=== PATIENT | male | born 1990 | race African-American/Black ===

== ENCOUNTER 2019-04-09 18:32 | Emergency (ER) | payer OTHER, SELFPAY ==
--- NOTE | 2019-04-09 18:44 | ED.URI ---
HPI - URI/Sore Throat General Chief Complaint: Upper Respiratory Infection Stated Complaint: sore throat Time Seen by Provider: 04/09/19 18:45 Source: patient and RN notes reviewed Mode of arrival: ambulatory Limitations: no limitations History of Present Illness HPI Narrative: 28-year-old male presents with concern for 2 to 3-day history of cough, sore throat, chest congestion, wheezing. Reports history of asthma. Reports he has been using his albuterol inhaler as needed for wheezing. MD elicited complaint: cough and sore throat Related Data Allergies Allergy/AdvReac Type Severity Reaction Status Date / Time amoxicillin Allergy Mild Verified 06/20/18 07:26 Penicillins Allergy Unknown Verified 06/20/18 07:26 Review of Systems Review of Systems: Narrative: CONSTITUTIONAL: Reports malaise, chills, sweats. Denies fever. EYES: Denies visual changes, redness, or discharge. ENT: Reports rhinorrhea, congestion, sore throat. Denies sinus pain, otalgia. CARDIOVASCULAR: Denies chest pain, palpitations, or edema. RESPIRATORY: Reports cough, chest congestion, wheezing. Denies dyspnea. GASTROINTESTINAL: Denies abdominal pain, nausea, vomiting, diarrhea SKIN: Denies rash or itching. MUSCULOSKELETAL: Denies myalgia. NEUROLOGIC: Denies headache. All systems reviewed & are unremarkable except as noted in HPI and below PMFSH Comments At time of signature, agree with nursing past medical, surgical, social and family history. There is no relevant family history pertinent to the presenting complaint Exam Narrative: Exam Narrative: GENERAL: Well-appearing, well-nourished, and in no acute distress. HEAD: Normocephalic, atraumatic. EYES: PERRLA, conjunctivae clear, and EOMI. ENT: Nares clear, turbinates edematous and erythematous, clear discharge. Mucous membranes moist. TM pearly gates with dull light reflex bilaterally; no tragal tenderness. Oropharynx erythematous without lesions. Tonsils enlarged and without exudate, no drooling, no hoarseness, no trismus. NECK: Supple. No lymphadenopathy CHEST: Clear to auscultation, breath sounds equal. Scattered expiratory wheeze. Rhonchi, rales, or stridor. No respiratory distress, speaks in full sentences. HEART: Regular rate and rhythm. No murmur heard. Normal peripheral pulses. SKIN: Warm, dry, no rash. NEURO: Alert and oriented x3. PSYCH: Normal mood and affect Course Course Emergency Course: Patient is aware of diagnosis, understands and agrees to treatment plan. Anticipatory guidance given. Patient agrees to follow-up as directed and is aware of reasons to seek care at the emergency department. Portions of this record may have been created with voice recognition software Vital Signs Vital signs: Vital Signs Temperature 99.2 F 04/09/19 18:45 Pulse Rate 95 04/09/19 18:45 Respiratory Rate 16 04/09/19 18:45 Blood Pressure 128/85 04/09/19 18:45 Pulse Oximetry 99 04/09/19 18:45 Temperature 99.2 F 04/09/19 18:45 Pulse Rate 95 04/09/19 18:45 Respiratory Rate 16 04/09/19 18:45 Blood Pressure 128/85 04/09/19 18:45 Pulse Oximetry 99 04/09/19 18:45 Reviewed. MDM - URI/Sore Throat MDM Narrative Medical decision making narrative: Differential diagnosis considered: Strep pharyngitis, allergic rhinitis, upper respiratory tract infection, sinusitis, rhinosinusitis, nasopharyngitis. viral pharyngitis, otitis media, otitis externa, pneumonia, bronchitis, viral cough syndrome, viral syndrome, and influenza. Exam findings show no acute concerns or changes; patient is non-toxic appearing and is in no distress. Patient is appropriate for outpatient treatment and follow-up. Lab Data Attestation: I reviewed the patient's lab results. Critical Care Time Critical Care Time Critical Care Time: No Discharge Plan Discharge Clinical Impression: Upper respiratory infection Qualifiers: URI type: unspecified viral URI Qualified Code(s): J06.9 - Acute upper respiratory infection,
[2019-04-09 18:45] VITALS: BP 128/85; PULSE 95; RESP 16; TEMP 37.3; O2SAT 99
== END 2019-04-09 19:03 | disposition home or self-care (01) ==
PROVIDERS: Emergency Provider Nurse Practitioner; PCP Family Medicine
DX: J06.9 Acute upper respiratory infection, unspecified (principal); J45.21 Mild intermittent asthma with (acute) exacerbation
CPT/HCPCS: 87081; 87880; 99213; G0463

== ENCOUNTER 2019-09-02 05:28 | Emergency (ER) | payer OTHER, SELFPAY ==
--- NOTE | ~2019-09-02 | XR_ITS ---
EXAMINATION: XR shoulder RT min 2V DATE: 09/02/2019 06:04 INDICATION: Right shoulder pain TECHNIQUE: AP internally and externally rotated, AP oblique externally rotated and transscapular Y vi ews of the right shoulder were obtained. COMPARISON: None FINDINGS: Normal alignment. No fracture.Glenohumeral and acromioclavicular joint spaces are normal. There are lucencies with sclerotic margins at the glenoid which could represent anchor tracks related to prior labral repair or degenerative cysts. Visualized portions of the lungs are clear. Soft tissues are unr emarkable. IMPRESSION: Likely postoperative change of prior labral repair along the glenoid. Otherwise unremarkable right sh oulder radiographs. Reviewed, dictated and finalized at location [facility]. IMPRESSION: Likely postoperative change of prior labral repair along the glenoid. Otherwise unremarkable right shoulder radiographs.
[2019-09-02 05:35] VITALS: BP 133/75; PULSE 71; RESP 19; TEMP 37; O2SAT 100
--- NOTE | 2019-09-02 06:21 | ED.EXTPRO ---
HPI - Extremity Problem General Chief complaint: Extremity Problem,Nontraumatic Stated complaint: osteonecrosis of rt shoulder Time Seen by Provider: 09/02/19 05:43 History of Present Illness HPI Narrative: Patient is a 29-year-old male who presents the ER with right shoulder pain. He is concerned he has osteonecrosis because he was online and read that that could form after you have had a previous surgery to your shoulder and if you drink alcohol. He reports he went out drinking 2 days ago and woke up with shoulder discomfort. He is unsure if he could have injured it traumatically while he was drinking. Pain comes in waves. He has full range of motion and no numbness or tingling. Mainly over the anterior lateral deltoid. He has follow-up with his primary care doctor today. Related Data Allergies Allergy/AdvReac Type Severity Reaction Status Date / Time amoxicillin Allergy Mild Hives Verified 09/02/19 05:30 Penicillins Allergy Unknown Hives Verified 09/02/19 05:30 Review of Systems Musculoskeletal: Musculoskeletal: Reports arthralgias, Denies joint swelling and Reports muscle cramps Neurologic: Denies focal weakness and Denies numbness PMFSH Past Medical History Medical History (Updated 09/02/19 @ 06:25 by Sina Stevens MD) Asthma Surgical History Surgical History (Updated 09/02/19 @ 06:23 by Sina Stevens MD) H/O arthroscopy of shoulder Social History Social History (Updated 09/02/19 @ 06:23 by Sina Stevens MD) Alcohol intake: current Gender identity (if verbalized by the patient): Male Exam Narrative: Exam Narrative: GENERAL: Well-appearing, well-nourished, and in no acute distress. HEAD: Normocephalic, atraumatic. EXTREMITIES: Focused exam of the right upper extremity reveals full range of motion with abduction/abduction/forward flexion/internal and external rotation. Mild tenderness over the deltoid anterior laterally but not at the AC joint. No clavicular tenderness on the right side. SKIN: Warm, dry, no rash. NEURO: Alert and oriented x3. PSYCH: Normal mood and affect. Course Course Emergency Course: Toradol for pain. Unremarkable x-ray. Follow-up with PCP. Vital Signs Vital signs: Vital Signs Temperature 98.6 F 09/02/19 05:35 Pulse Rate 71 09/02/19 05:35 Respiratory Rate 19 09/02/19 05:35 Blood Pressure 133/75 09/02/19 05:35 Pulse Oximetry 100 09/02/19 05:35 Temperature 98.6 F 09/02/19 05:35 Pulse Rate 71 09/02/19 05:35 Respiratory Rate 19 09/02/19 05:35 Blood Pressure 133/75 09/02/19 05:35 Pulse Oximetry 100 09/02/19 05:35 MDM - Extremity (Nontraumatic) Imaging Data My impression: Rt Shoulder XR: Negative Discharge Plan Discharge Clinical Impression: Acute shoulder pain Patient Disposition: Home, Self-Care Condition: Stable Instructions: Shoulder Pain (ED) Additional Instructions: Return to the ER if you suffer new injury, you have chest pain or shortness of breath, you have focal weakness or numbness in your arm, or you have additional concerns. Take anti-inflammatory medication to help with your discomfort. Prescriptions: New ibuprofen 800 mg tablet 800 mg PO TID Qty: 20 RF: 0 Follow-up/Referrals: Kathleen,Joel Pavon MD [Primary Care Provider] - 1 Day
== END 2019-09-02 06:42 | disposition home or self-care (01) ==
PROVIDERS: Emergency Provider Emergency Medicine; PCP Family Medicine
DX: M25.511 Pain in right shoulder (principal); J45.909 Unspecified asthma, uncomplicated
CPT/HCPCS: 73030; 99283

== ENCOUNTER 2020-10-16 14:39 | Outpatient (CLI) | payer OTHER, SELFPAY ==
--- NOTE | ~2020-10-16 | CT_ITS ---
EXAMINATION: CT abdomen pelvis wo con DATE: 10/16/2020 15:00 INDICATION: Kidney stone TECHNIQUE: Computed tomography (CT) of the abdomen and pelvis was performed without intravenous contr ast. Automated exposure control and iterative reconstruction technique were employed. Exam dose: 200 .04 mGy-cm total exam DLP. COMPARISON: None. FINDINGS: The lung bases are clear. Normal heart size. No pericardial or pleural effusion. The liver, gallbladder, bile ducts, pancreas, pancreatic duct, spleen, adrenal glands, kidneys and ur inary tract are unremarkable. No urinary tract calculus or hydroureteronephrosis is evident. The urin holley bladder and prostate gland are unremarkable. Normal caliber of the abdominal aorta. No intraperitoneal or retroperitoneal or pelvic mass lesion or adenopathy or ascites. Normal appendix. No bowel obstruction, bowel wall thickening, pneumatosis or intraperitoneal free air . Included skeletal structures are unremarkable. IMPRESSION: No significant abnormality Reviewed, dictated and finalized at [facility]. Reviewed, dictated and finalized at location [facility]. IMPRESSION: No significant abnormality
== END 2020-10-16 14:40 | disposition home or self-care (01) ==
LOC: ANHIMG 14:42
PROVIDERS: PCP Family Medicine; Visit Provider Family Medicine
DX: N20.0 Calculus of kidney (principal)
CPT/HCPCS: 74176

== ENCOUNTER 2021-05-26 18:24 | Emergency (ER) | payer OTHER, SELFPAY ==
--- NOTE | 2021-05-26 18:30 | ED.SKABFB ---
HPI - Skin/Abscess/Foreign Bdy General Chief complaint: Skin/Abscess/Foreign Body Stated complaint: Lumps under arms Time Seen by Provider: 05/26/21 18:30 Source: patient Mode of arrival: ambulatory Limitations: no limitations History of Present Illness HPI narrative: 30-year-old male presents with complaint of pain to bilateral armpits with complaint of chills low-grade fever, body aches for 2 days. Reports history of abscess to axilla area. Has been applying PRID. No other complaints today. All systems reviewed and negative except as noted above. Related Data Allergies Allergy/AdvReac Type Severity Reaction Status Date / Time amoxicillin Allergy Mild Hives Verified 05/26/21 18:26 Penicillins Allergy Unknown Hives Verified 05/26/21 18:26 Review of Systems Review of Systems: CONSTITUTIONAL: Denies fever, chills, or sweats. EYES: Denies visual changes, redness, or discharge. ENT: Denies rhinorrhea, congestion, sore throat, or otalgia. CARDIOVASCULAR: Denies chest pain, palpitations, or edema. RESPIRATORY: Denies cough or dyspnea. GASTROINTESTINAL: Denies abdominal pain, nausea, vomiting, or diarrhea. GENITOURINARY: Denies dysuria or hematuria. SKIN: Denies rash or itching. Painful lumps to both armpits. MUSCULOSKELETAL: Denies back pain, joint pain, or myalgia. NEUROLOGIC: Denies headache, numbness, or weakness. PSYCHIATRIC: Denies anxiety or depression. All other systems reviewed are negative, except as documented in HPI. [facility] Past Medical History Medical History (Updated 05/26/21 @ 18:46 by Heather Ansari NP) Asthma Surgical History Surgical History (Updated 09/02/19 @ 06:23 by Sina Stevens MD) H/O arthroscopy of shoulder Social History Social History (Updated 09/02/19 @ 06:23 by Sina Stevens MD) Alcohol intake: current Gender identity (if verbalized by the patient): Male Comments At time of signature, agree with nursing past medical, surgical, social and family history. There is no relevant family history pertinent to the presenting complaint. Exam Narrative: GENERAL: This is a well-nourished, well-developed patient, in no apparent distress. HEAD: normocephalic, atraumatic. EYES: PERRL. Sclera clear/white. Vision is grossly intact. EARS: External ears normal. NOSE: External nose normal. THROAT: Mucous membranes moist. NECK: Neck supple, non-tender without lymphadenopathy, masses or thyromegaly. CARDIOVASCULAR: Regular rate and rhythm without murmurs, gallops, or rubs. RESPIRATORY: Clear to auscultation. Breath sounds equal bilaterally. No wheezes, rales, or rhonchi. SKIN: warm, Dry, intact with no suspicious lesions or rash, good texture and turgor. There is an erythematous area to left axilla that is tender on palpation. This is a small boil or folliculitis. No fluctuance concerning for abscess. There are 2 similar swollen areas to right axilla approximately 1 cm diameter each. Tender on palpation. NEURO: awake, alert, and oriented to person, place and time. There were no obvious focal neurologic abnormalities. EXTREMITIES: Normal range of motion. BACK: Nontender without deformity. No CVA tenderness. Course Course Level of Care: Express Care Visit Vital Signs Vital signs: Reviewed MDM - Skin/Abscess/Foreign Bdy MDM Narrative Medical decision making narrative: Patient is aware of diagnosis, understands and agrees to treatment plan. Anticipatory guidance given. Patient agrees to follow-up as directed and is aware of reasons to seek care at the emergency department. Portions of this record may have been created with voice recognition software I&D not indicated. These are small boils versus folliculitis. There is no fluctuance. Differential Diagnosis Differential diagnosis: Likely abscess of skin or subcutaneous tissue, cellulitis and contact dermatitis Discharge Plan Discharge Clinical Impression: Boil, axilla Qualifiers: Laterality: unspecified laterality Qualifi
[2021-05-26 18:36] VITALS: BP 115/71; PULSE 88; RESP 16; TEMP 37.4; O2SAT 100
== END 2021-05-26 18:50 | disposition home or self-care (01) ==
PROVIDERS: Emergency Provider Nurse Practitioner Family; PCP Family Medicine
DX: L02.422 Furuncle of left axilla (principal); L02.421 Furuncle of right axilla; J45.909 Unspecified asthma, uncomplicated
CPT/HCPCS: 99213; G0463

== ENCOUNTER 2023-02-24 13:17 | Emergency (ER) | payer OTHER, SELFPAY ==
[2023-02-24 13:30] VITALS: BP 117/72; PULSE 75; RESP 16; TEMP 37.1; O2SAT 100
--- NOTE | 2023-02-24 14:07 | ED.DENTAL ---
HPI - Dental/Oral General Chief complaint: Dental/Oral Stated complaint: Dental Pain Time Seen by Provider: 02/24/23 14:07 Source: patient Mode of arrival: ambulatory Limitations: no limitations History of Present Illness HPI Narrative: 32-year-old male presents with complaint of right upper dental pain for the past 3-4 days. Does not have a dentist due to change in insurance. Afebrile. No significant swelling noted. All systems reviewed and negative except as noted above. Related Data Home Medications Medication Instructions Recorded Confirmed dextroamphetamine-amphetamine ER 20 mg PO DAILY 02/24/23 02/24/23 20 mg 24hr capsule,extend release Allergies Allergy/AdvReac Type Severity Reaction Status Date / Time amoxicillin Allergy Mild Hives Verified 02/24/23 14:03 Penicillins Allergy Unknown Hives Verified 02/24/23 14:03 Review of Systems Review of Systems: CONSTITUTIONAL: Denies fever, chills, or sweats. EYES: Denies visual changes, redness, or discharge. ENT: Denies rhinorrhea, congestion, sore throat, or otalgia. Reports right upper dental pain. CARDIOVASCULAR: Denies chest pain, palpitations, or edema. RESPIRATORY: Denies cough or dyspnea. GASTROINTESTINAL: Denies abdominal pain, nausea, vomiting, or diarrhea. GENITOURINARY: Denies dysuria or hematuria. SKIN: Denies rash or itching. MUSCULOSKELETAL: Denies back pain, joint pain, or myalgia. NEUROLOGIC: Denies headache, numbness, or weakness. PSYCHIATRIC: Denies anxiety or depression. All other systems reviewed are negative, except as documented in HPI. [facility] Past Medical History Medical History (Updated 02/24/23 @ 14:12 by Heather Ansari NP) Asthma Surgical History Surgical History (Updated 09/02/19 @ 06:23 by Sina Stevens MD) H/O arthroscopy of shoulder Social History Social History (Updated 09/02/19 @ 06:23 by Sina Stevens MD) Alcohol intake: current Gender identity (if verbalized by the patient): Male Comments At time of signature, agree with nursing past medical, surgical, social and family history. There is no relevant family history pertinent to the presenting complaint. Exam Narrative: GENERAL: This is a well-nourished, well-developed patient, in no apparent distress. HEAD: normocephalic, atraumatic. EYES: PERRL. Sclera clear/white. Vision is grossly intact. EARS: External ears normal NOSE: External nose normal MOUTH: tenderness to tooth #4. erythema to gums. no significant swelling or fluctuance. NECK: Neck supple, non-tender without lymphadenopathy, masses or thyromegaly. CARDIOVASCULAR: Regular rate and rhythm without murmurs, gallops, or rubs. RESPIRATORY: Clear to auscultation. Breath sounds equal bilaterally. No wheezes, rales, or rhonchi. SKIN: warm, Dry, intact with no suspicious lesions or rash, good texture and turgor. NEURO: awake, alert, and oriented to person, place and time. There were no obvious focal neurologic abnormalities. EXTREMITIES: No joint tenderness, effusion, or edema noted. Course Course Level of Care: Express Care Visit Vital Signs Vital signs: Vital Signs Temperature 37.1 C 02/24/23 13:30 Pulse Rate 75 02/24/23 13:30 Respiratory Rate 16 02/24/23 13:30 Blood Pressure 117/72 02/24/23 13:30 Pulse Oximetry 100 02/24/23 13:30 Oxygen Delivery Room Air 02/24/23 13:30 Temperature 37.1 C 02/24/23 13:30 Pulse Rate 75 02/24/23 13:30 Respiratory Rate 16 02/24/23 13:30 Blood Pressure 117/72 02/24/23 13:30 Pulse Oximetry 100 02/24/23 13:30 Oxygen Delivery Room Air 02/24/23 13:30 Reviewed MDM - Dental/Oral MDM Narrative Medical decision making narrative: Patient is aware of diagnosis, understands and agrees to treatment plan. Anticipatory guidance given. Patient agrees to follow-up as directed and is aware of reasons to seek care at the emergency department. Portions of this record may have been created with
== END 2023-02-24 14:20 | disposition home or self-care (01) ==
PROVIDERS: Emergency Provider Nurse Practitioner Family; PCP Family Medicine
DX: K04.7 Periapical abscess without sinus (principal); J45.909 Unspecified asthma, uncomplicated
CPT/HCPCS: 99213; G0463